=== PATIENT | male | born 1950 | race Caucasian/White ===

== ENCOUNTER 2017-08-08 10:34 | Emergency (ER) | payer MEDICARE ==
[~2017-08-08] VITALS: Ht 177.8 cm; Wt 107.0 kg
[~2017-08-08 10:34] MED LIST: AMOX500T2 PO; ASPI325T PO; LACTGRA PO; METO50TA PO; MINO50TA PO; MOBI7.5T PO; ROSU20 PO; SLO-500T2 PO; [UNRECOGNIZED DRUG - CODE] IM
[2017-08-08 10:35] VITALS: BP 135/79; PULSE 104; RESP 12; TEMP 98.4; O2SAT 98
[2017-08-08] MEDS ORDERED: MINO100 PO (11:10)
[2017-08-08] MEDS ORDERED: METO100T PO (11:10)
[2017-08-08] MEDS ORDERED: ATOR1TAB18 PO (11:10)
[2017-08-08] MEDS ORDERED: OMEP20CA2 PO (11:10)
[2017-08-08] MEDS ORDERED: HALO100I IM (11:10)
[2017-08-08] MEDS ORDERED: VITA100018 PO (11:10)
[2017-08-08] MEDS ORDERED: ASPI81CH CHEW (11:10)
[2017-08-08] MEDS ORDERED: NIAC500T67 PO (11:10)
[2017-08-08] MEDS ORDERED: CETI10CH CHEW (11:10)
[2017-08-08] MEDS ORDERED: PIPERACIL-TAZO 3.375 GM PREMIX 50 ML IV ONE (11:30)
[2017-08-08] MEDS ORDERED: VANCOMYCIN INJ 1,000 MG in SODIUM CHLOR 0.9% 250 ML INJ 250 ML IV ONE (11:30)
[2017-08-08] MEDS ORDERED: AMPICILLIN-SULBACTAM INJ 3 GM in SODIUM CHLORIDE 0.9% INJ 100 ML IV ONE (11:30)
[2017-08-08 11:35] LABS: AUTOMATED NEUTROPHIL # 8.8 TH/MM3 (1.8-7.7); BASOPHIL # 0.1 TH/MM3 (0-0.2); BASOPHIL % 0.6 % (0.0-2.0); EOSINOPHIL # 0.2 TH/MM3 (0-0.4); EOSINOPHIL % 1.3 % (0.0-4.0); HEMATOCRIT 44.9 % (39.0-51.0); HEMO FLAGS DIFF FINAL; LYMPH % 17.8 % (9.0-44.0); LYMPHOCYTE # 2.3 TH/MM3 (1.0-4.8); MEAN CELL VOLUME 87.7 FL (80.0-100.0); MEAN CORPUSCULAR HEMOGLOBIN 30.3 PG (27.0-34.0); MEAN CORPUSCULAR HGB CONC 34.6 % (32.0-36.0); MONO % 10.8 % (0.0-8.0); NEUT % 69.5 % (16.0-70.0); PLATELET COUNT 173 TH/MM3 (150-450); RED BLOOD COUNT 5.12 MIL/MM3 (4.50-5.90); WHITE BLOOD COUNT 12.7 TH/MM3 (4.0-11.0)
--- NOTE | 2017-08-08 11:52 | PD ---
HPI Chief Complaint: Skin Problem Time Seen by Provider: 11:11 Travel History International Travel<30 days: No Contact w/Intl Traveler<30days: No Traveled to known affect area: No History of Present Illness HPI 66-year-old male that presents to the ED for evaluation of rash to the face. Per patient his been ongoing for about 3 days. Per patient he has not seen his doctor. Per patient he follows with the [facility]. Per patient he had this about 3 years ago and was seen at this hospital and had to be admitted. Per patient at that time he "let it go to long" and had to be admitted for IV antibiotics. Per patient he is hoping to catch it early. The patient his been on the face is 6 out of 10. Patient denies anything that could've caused this. He denies any injuries. Denies any history of diabetes or immunosuppression. No surgeries to the face. No congestion. No fevers chills or sweats. Per patient pain is mostly around the cheeks and the bridge of the nose where he has most of the erythema and rash noted. Patient does have an allergy to sulfa. He denies having any other symptoms. No chest pain or shortness of breath. No abdominal pain. Urinary or bowel movement symptoms. PFSH Past Medical History Arthritis: Yes (LOWER LEGS) Anxiety: No Depression: No Heart Rhythm Problems: No Cardiovascular Problems: Yes High Cholesterol: Yes Chest Pain: No Congestive Heart Failure: No Endocrine: No GERD: Yes Genitourinary: Yes Immune Disorder: No Kidney Stones: No Musculoskeletal: Yes Neurologic: No Psychiatric: Yes Reproductive: No Respiratory: No Renal Failure: No Schizophrenia: Yes Thyroid Disease: No Triglycerides - High: Yes Tetanus Vaccination: Unknown Influenza Vaccination: Yes ?: Not Past Surgical History Abdominal Surgery: No Cardiac Surgery: Yes ([address] 8 YEARS AGO) Ear Surgery: No Endocrine Surgery: No Eye Surgery: No Genitourinary Surgery: No Gynecologic Surgery: No Oral Surgery: Yes (TONSILECTOMY WHEN WAS A KID) Thoracic Surgery: No Tonsillectomy: Yes Other Surgery: Yes (SKIN BIOPSY) Social History Alcohol Use: No Tobacco Use: No Substance Use: No Allergies-Medications (Allergen,Severity, Reaction): Coded Allergies: Sulfa (Sulfonamide Antibiotics) (Unverified Allergy, Unknown, 07/02/17) erythromycin base (Verified Allergy, Unknown, 08/08/17) Reported Meds & Prescriptions Reported Meds & Active Scripts Active Augmentin (Amoxicillin-Clavulanate) 875-125 Mg Tab 1 Tab PO BID Reported Omeprazole 20 Mg Cap 20 Mg PO DAILY PRN Niacin (Niacinamide) 500 Mg Tablet 2,000 Mg PO HS Minocycline (Minocycline HCl) 100 Mg Cap 100 Mg PO BID Metoprolol Tartrate 100 Mg Tab 50 Mg PO BID Haloperidol Decanoate Inj (Haloperidol Decanoate) 100 Mg/Ml Inj 100 Mg IM Q28D Vitamin D3 (Cholecalciferol) 1,000 Unit Tab 2,000 Units PO DAILY Cetirizine (Cetirizine HCl) 10 Mg Chew 10 Mg CHEW DAILY Atorvastatin (Atorvastatin Calcium) 80 Mg Tab 80 Mg PO HS Aspirin 81 Mg Chew 81 Mg CHEW DAILY Review of Systems Except as stated in HPI: all other systems reviewed are Neg Physical Exam Narrative GENERAL: SKIN: Warm and dry. Patient has an erythematous slightly blanchable rash on the mid face. Mainly around the forehead, bridge of the nose as well as the nose itself and the cheeks. Warm to the touch especially around the cheek area. Blanchable on the forehead only. No blanchable of the nose. Tender to touch. No obvious purulence or mass noted. Nostrils are patent bilaterally. No lymphadenopathy noted. HEAD: Atraumatic. Normocephalic. EYES: Pupils equal and round. No scleral icterus. No injection or drainage. ENT: No nasal bleeding or discharge. Mucous membranes pink and moist. Tongue is midline. No uvula deviation. NECK: Trachea midline. No JVD. CARDIOVASCULAR: Regular rate and rhythm. No murmurs, S3, S4. RESPIRATORY: No accessory muscle use. Clear to auscultation. Breath sounds equal bilaterally. GASTROINTESTINAL: Abdomen soft, non-tender, nondistended. Hepatic and splenic margins not palpable. MUSCULOSKELETAL: Extremities without clubbing, cyanosis, or edema. No obvious deformities. Full range of motion of the upper and lower extremities bilaterally. 2+ pulses bilaterally. NEUROLOGICAL: Awake and alert. No obvious cranial nerve deficits. Motor grossly within normal limits. Five out of 5 muscle strength in the arms and legs. Normal speech. PSYCHIATRIC: Appropriate mood and affect; insight and judgment normal. Data Data Last Documented VS Vital Signs Date Time Temp Pulse Resp B/P (MAP) Pulse Ox O2 Delivery O2 Flow Rate FiO2 08/08/17 12:48 81 08/08/17 11:00 18 08/08/17 10:35 98.4 98 Orders Orders Complete Blood Count With Diff (08/08/17 11:20) Basic Metabolic Panel (Bmp) (08/08/17 11:20) Urinalysis - C+S If Indicated (08/08/17 11:20) Piperacil-Tazo 3.375 Gm Premix (Zosyn 3. (08/08/17 11:30) Lactic Acid (08/08/17 11:26) Blood Culture (08/08/17 11:26) Ampicillin-Sulbactam Inj (Unasyn Inj) (08/08/17 11:30) Vancomycin Inj (Vancomycin Inj) (08/08/17 11:30) Labs Laboratory Tests Test 08/08/17 11:20 08/08/17 11:30 White Blood Count 12.7 TH/MM3 Red Blood Count 5.12 MIL/MM3 Hemoglobin 15.5 GM/DL Hematocrit 44.9 % Mean Corpuscular Volume 87.7 FL Mean Corpuscular Hemoglobin 30.3 PG Mean Corpuscular Hemoglobin Concent 34.6 % Red Cell Distribution Width 14.0 % Platelet Count 173 TH/MM3 Mean Platelet Volume 8.8 FL Neutrophils (%) (Auto) 69.5 % Lymphocytes (%) (Auto) 17.8 % Monocytes (%) (Auto) 10.8 % Eosinophils (%) (Auto) 1.3 % Basophils (%) (Auto) 0.6 % Neutrophils # (Auto) 8.8 TH/MM3 Lymphocytes # (Auto) 2.3 TH/MM3 Monocytes # (Auto) 1.4 TH/MM3 Eosinophils # (Auto) 0.2 TH/MM3 Basophils # (Auto) 0.1 TH/MM3 CBC Comment DIFF FINAL Differential Comment Urine Color GEN Urine Turbidity HAZY Urine pH 6.0 Urine Specific [place] 1.029 Urine Protein 30 mg/dL Urine Glucose (UA) NEG mg/dL Urine Ketones 10 mg/dL Urine Occult Blood SMALL Urine Nitrite NEG Urine Bilirubin NEG Urine Urobilinogen 4.0 MG/DL Urine Leukocyte Esterase NEG Urine RBC 2 /hpf Urine WBC 6 /hpf Urine Squamous Epithelial Cells 1 /hpf Urine Bacteria OCC /hpf Urine Hyaline Casts 3 /lpf Urine Mucus MOD /lpf Microscopic Urinalysis Comment CULT NOT INDICATED Blood Urea Nitrogen 15 MG/DL Creatinine 1.12 MG/DL Random Glucose 118 MG/DL Calcium Level 8.8 MG/DL Sodium Level 138 MEQ/L Potassium Level 3.7 MEQ/L Chloride Level 103 MEQ/L Carbon Dioxide Level 24.9 MEQ/L Anion Gap 10 MEQ/L Estimat Glomerular Filtration Rate 65 ML/MIN Lactic Acid Level 1.3 mmol/L MDM Medical Decision Making Medical Screen Exam Complete: Yes Emergency Medical Condition: Yes Medical Record Reviewed: Yes Interpretation(s) CBC Diagram 08/08/17 11:20 BMP Diagram 08/08/17 11:20 Calcium Level 8.8 UA shows bacteria, WBCs, blood, urobilinogen Differential Diagnosis Cellulitis versus facial cellulitis versus erysipelas versus rosacea Narrative Course 66-year-old male that presents to the ED for evaluation of facial rash. Patient was properly examined and was found to have signs and symptoms concerning for infection. My attending Dr. Brock and evaluated the patient with me and agrees with plan. Labs were ordered. Patient was given IV Vanco as well as Unasyn which was given to him in the past with good results. Labs showed slightly elevated WBC, possible UTI. This was discussed with my attending who agrees with discharge plan. He will be started on augmentin which is antibiotic given to him last time which helped clear his infection. Patient understands reasons to come back. Follow up with PCP recommended as early as saturday. See ED if worsening symptoms. Diagnosis Primary Impression: Cellulitis diffuse, face Additional Impression: UTI (urinary tract infection) Qualified Codes: N30.01 - Acute cystitis with hematuria Patient Instructions: General Instructions Additional Instructions: Take medication as prescribed. Follow-up with PCP. See ED worsening symptoms. Motrin or tylenol for pain. Recheck in 48 hours if worsening or not improving at all. If not follow up with PCP. Med/Other Pt SpecificInfo: Prescription(s) given Scripts Amoxicillin-Clavulanate (Augmentin) 875-125 Mg Tab 1 TAB PO BID for Infection, #10 TAB 0 Refills Prov: Ruth Brock MD 08/08/17 Disposition: 01 DISCHARGE HOME Condition: Stable Leonardo Storm Aug 08, 2017 11:52
[2017-08-08 11:59] LABS: BACTERIA, URINE OCC /hpf; BLOOD, URINE SMALL (NEG); COMMENT (UR) CULT NOT INDICATED; CULTURE IF INDICATED CULT NOT INDICATED; GLUCOSE,URINE NEG (NEG); HYALINE CAST, URINE 3 /lpf (RARE); KETONE, URINE 10 mg/dL (NEG); MUCUS URINE MOD /lpf (OCC); NITRITE,URINE NEG (NEG); SQUAMOUS EPITHELIAL CELL URINE 1 /hpf (0-5)
[2017-08-08 12:08] LABS: BICARBONATE 24.9 MEQ/L (21.0-32.0); POTASSIUM 3.7 MEQ/L (3.5-5.1); URINE COLOR AMBER (YELLW/STRAW)
[2017-08-08 12:48] VITALS: PULSE 81
[2017-08-08] MEDS ORDERED: AUGM875T3 PO (12:49)
== END 2017-08-08 14:06 | disposition home or self-care (01) ==
LOC: NEPE 10:34
DX: L03.211 Cellulitis of face (principal); N30.01 Acute cystitis with hematuria; E78.00 Pure hypercholesterolemia, unspecified; K21.9 Gastro-esophageal reflux disease without esophagitis
CPT/HCPCS: 80048; 81001; 83605; 85025; 87040; 96365; 96367; 99284; J0295; J3370; J7050

== ENCOUNTER 2017-11-26 08:30 | Observation (INO) | payer MEDICARE ==
[~2017-11-26] VITALS: Ht 177.8 cm; Wt 104.5 kg
[~2017-11-26 08:30] MED LIST changes: -AMOX500T2 PO; +ASPI-516 CHEW; -ASPI325T PO; +ATOR80TA45 PO; +AUGM875T3 PO; +CETI10CH CHEW; +HALO100I IM; -LACTGRA PO; +METO100T PO; -METO50TA PO; +MINO100 PO; -MINO50TA PO; -MOBI7.5T PO; +NIAC500T67 PO; +OMEP20CA2 PO; -ROSU20 PO; -SLO-500T2 PO; +VITA100018 PO; -[UNRECOGNIZED DRUG - CODE] IM
[2017-11-26 08:31] VITALS: BP 139/69; PULSE 95; RESP 14; TEMP 98.1; O2SAT 97
[2017-11-26] MEDS ORDERED: VANCOMYCIN INJ 1,000 MG in SODIUM CHLOR 0.9% 250 ML INJ 250 ML IV STA (09:15)
[2017-11-26] MEDS ORDERED: PIPERACIL-TAZO 4.5 GM PREMIX 100 ML IV STA (09:15)
[2017-11-26 09:38] LABS: AUTOMATED NEUTROPHIL # 6.1 TH/MM3 (1.8-7.7); BASOPHIL # 0.1 TH/MM3 (0-0.2); EOSINOPHIL # 0.5 TH/MM3 (0-0.4); EOSINOPHIL % 5.2 % (0.0-4.0); HEMATOCRIT 42.3 % (39.0-51.0); HEMOGLOBIN 14.8 GM/DL (13.0-17.0); LYMPH % 22.2 % (9.0-44.0); LYMPHOCYTE # 2.1 TH/MM3 (1.0-4.8); MEAN CELL VOLUME 88.8 FL (80.0-100.0); MEAN CORPUSCULAR HEMOGLOBIN 31.1 PG (27.0-34.0); MEAN PLATELET VOLUME 8.6 FL (7.0-11.0); MONO % 8.1 % (0.0-8.0); MONOCYTE # 0.8 TH/MM3 (0-0.9); NEUT % 63.5 % (16.0-70.0); PLATELET COUNT 203 TH/MM3 (150-450); RED BLOOD COUNT 4.76 MIL/MM3 (4.50-5.90); RED CELL DISTRIBUTION WIDTH 13.2 % (11.6-17.2); WHITE BLOOD COUNT 9.6 TH/MM3 (4.0-11.0)
[2017-11-26 09:51] LABS: ALBUMIN 3.2 GM/DL (3.4-5.0); AST (GOT) 22 U/L (15-37); BLOOD UREA NITROGEN 8 MG/DL (7-18); CALCIUM 8.5 MG/DL (8.5-10.1); CHLORIDE 104 MEQ/L (98-107); CREATININE 0.92 MG/DL (0.60-1.30); GLOMERULAR FILTRATION RATE 82 ML/MIN (>89); GLUCOSE,RANDOM 115 MG/DL (74-106); INTERNATIONAL NORMALIZED RATIO 1.1 RATIO; MAGNESIUM 1.8 MG/DL (1.5-2.5); PROTHROMBIN TIME - PATIENT 10.9 SEC (9.8-11.6); SODIUM (NA) 139 MEQ/L (136-145)
[2017-11-26 09:56] LABS: ALKALINE PHOSPHATASE 117 U/L (45-117); ALT (GPT) 26 U/L (12-78); TOTAL BILIRUBIN ADULT 0.9 MG/DL (0.2-1.0)
--- NOTE | 2017-11-26 10:02 | PD ---
HPI Chief Complaint: Edema Time Seen by Provider: 09:15 Travel History International Travel<30 days: No Contact w/Intl Traveler<30days: No Traveled to known affect area: No History of Present Illness HPI 67-year-old male presents with redness and swelling to his face over the past couple of days. He states he went to the [place] doctor yesterday and they looked in his ears and thought his ear might be infected but he states they did not start him on any antibiotics. He states he had a little bit of a fever he thinks yesterday but denies any since then. He states when he had this before he had a stay in the hospital for IV antibiotics. He denies any other concurrent complaints at this time. Quality is red. Location is face. Severity is progressive per patient. He denies any exposure to any new products. PFSH Past Medical History Arthritis: Yes (LOWER LEGS) Anxiety: No Depression: No Heart Rhythm Problems: No Cardiovascular Problems: Yes High Cholesterol: Yes Chest Pain: No Congestive Heart Failure: No Diminished Hearing: No Endocrine: No Gastrointestinal Disorders: No GERD: Yes Genitourinary: Yes Immune Disorder: No Kidney Stones: No Musculoskeletal: Yes Neurologic: No Psychiatric: Yes Reproductive: No Respiratory: No Renal Failure: No Schizophrenia: Yes Thyroid Disease: No Triglycerides - High: Yes Influenza Vaccination: No Past Surgical History Abdominal Surgery: No Cardiac Surgery: Yes ([address] 8 YEARS AGO) Ear Surgery: No Endocrine Surgery: No Eye Surgery: No Genitourinary Surgery: Yes (KIDNEY STENT ) Gynecologic Surgery: No Oral Surgery: Yes (TONSILECTOMY WHEN WAS A KID) Thoracic Surgery: No Tonsillectomy: Yes Other Surgery: Yes (SKIN BIOPSY) Social History Alcohol Use: No Tobacco Use: No Substance Use: No Allergies-Medications (Allergen,Severity, Reaction): Coded Allergies: Sulfa (Sulfonamide Antibiotics) (Unverified Allergy, Unknown, 07/02/17) erythromycin base (Verified Allergy, Unknown, 08/08/17) Reported Meds & Prescriptions Reported Meds & Active Scripts Active Augmentin (Amoxicillin-Clavulanate) 875-125 Mg Tab 1 Tab PO BID Reported Omeprazole 20 Mg Cap 20 Mg PO DAILY PRN Niacin (Niacinamide) 500 Mg Tablet 2,000 Mg PO HS Minocycline (Minocycline HCl) 100 Mg Cap 100 Mg PO BID Metoprolol Tartrate 100 Mg Tab 50 Mg PO BID Haloperidol Decanoate Inj (Haloperidol Decanoate) 100 Mg/Ml Inj 100 Mg IM Q28D Vitamin D3 (Cholecalciferol) 1,000 Unit Tab 2,000 Units PO DAILY Cetirizine (Cetirizine HCl) 10 Mg Chew 10 Mg CHEW DAILY Atorvastatin (Atorvastatin Calcium) 80 Mg Tab 80 Mg PO HS Aspirin 81 Mg Chew 81 Mg CHEW DAILY Review of Systems Except as stated in HPI: all other systems reviewed are Neg Physical Exam Narrative GENERAL: Well-nourished, well-developed patient. SKIN: Warm and dry. Erythema and warmth noted to area above nose that extends up into forehead and bilateral supraorbital areas without underlying crepitus or induration, warm to touch HEAD: Normocephalic and atraumatic. EYES: No injection or drainage. Extraocular movement intact ENT: No nasal drainage noted. NECK: Supple, trachea midline. CARDIOVASCULAR: Regular rate and rhythm RESPIRATORY: Breath sounds equal bilaterally. No accessory muscle use. GASTROINTESTINAL: Abdomen soft, nondistended. EXTREMITIES: No edema. NEUROLOGICAL: Awake and alert. Motor and sensory grossly within normal limits. Normal speech. Data Data Last Documented VS Vital Signs Date Time Temp Pulse Resp B/P (MAP) Pulse Ox O2 Delivery O2 Flow Rate FiO2 11/26/17 10:05 12 100 Room Air 11/26/17 10:05 67 11/26/17 08:31 98.1 Orders Orders Sepsis Workup Initiated (11/26/17 ) Complete Blood Count With Diff (11/26/17 09:15) Comprehensive Metabolic Panel (11/26/17 09:15) Prothrombin Time / Inr (Pt) (11/26/17 09:15) Act Partial Throm Time (Ptt) (11/26/17 09:15) Lactic Acid Sepsis Protocol (11/26/17 09:15) Magnesium (Mg) (11/26/17 09:15) Urinalysis - C+S If Indicated (11/26/17 09:15) Blood Culture (11/26/17 09:15) Ecg Monitoring (11/26/17 09:15) Iv Access Insert/Monitor (11/26/17 09:15) Oximetry (11/26/17 09:15) Ct Facial Bones W Iv Contrast (11/26/17 ) Piperacil-Tazo 4.5 Gm Premix (Zosyn 4.5 (11/26/17 09:15) Vancomycin Inj (Vancomycin Inj) (11/26/17 09:15) Iohexol 350 Inj (Omnipaque 350 Inj) (11/26/17 10:57) Admit Order (Ed Use Only) (11/26/17 11:27) Labs Laboratory Tests Test 11/26/17 09:25 11/26/17 10:02 White Blood Count 9.6 TH/MM3 Red Blood Count 4.76 MIL/MM3 Hemoglobin 14.8 GM/DL Hematocrit 42.3 % Mean Corpuscular Volume 88.8 FL Mean Corpuscular Hemoglobin 31.1 PG Mean Corpuscular Hemoglobin Concent 35.0 % Red Cell Distribution Width 13.2 % Platelet Count 203 TH/MM3 Mean Platelet Volume 8.6 FL Neutrophils (%) (Auto) 63.5 % Lymphocytes (%) (Auto) 22.2 % Monocytes (%) (Auto) 8.1 % Eosinophils (%) (Auto) 5.2 % Basophils (%) (Auto) 1.0 % Neutrophils # (Auto) 6.1 TH/MM3 Lymphocytes # (Auto) 2.1 TH/MM3 Monocytes # (Auto) 0.8 TH/MM3 Eosinophils # (Auto) 0.5 TH/MM3 Basophils # (Auto) 0.1 TH/MM3 CBC Comment DIFF FINAL Differential Comment Prothrombin Time 10.9 SEC Prothromb Time International Ratio 1.1 RATIO Activated Partial Thromboplast Time 28.2 SEC Blood Urea Nitrogen 8 MG/DL Creatinine 0.92 MG/DL Random Glucose 115 MG/DL Total Protein 7.0 GM/DL Albumin 3.2 GM/DL Calcium Level 8.5 MG/DL Magnesium Level 1.8 MG/DL Alkaline Phosphatase 117 U/L Aspartate Amino Transf (AST/SGOT) 22 U/L Alanine Aminotransferase (ALT/SGPT) 26 U/L Total Bilirubin 0.9 MG/DL Sodium Level 139 MEQ/L Potassium Level 3.5 MEQ/L Chloride Level 104 MEQ/L Carbon Dioxide Level 30.0 MEQ/L Anion Gap 5 MEQ/L Estimat Glomerular Filtration Rate 82 ML/MIN Lactic Acid Level 1.1 mmol/L Urine Color YELLOW Urine Turbidity CLEAR Urine pH 6.0 Urine Specific [place] 1.024 Urine Protein TRACE mg/dL Urine Glucose (UA) NEG mg/dL Urine Ketones NEG mg/dL Urine Occult Blood NEG Urine Nitrite NEG Urine Bilirubin NEG Urine Urobilinogen 2.0 MG/DL Urine Leukocyte Esterase NEG Urine RBC 1 /hpf Urine WBC 1 /hpf Urine Squamous Epithelial Cells <1 /hpf Urine Mucus FEW /lpf Microscopic Urinalysis Comment CATH-CULT NOT IND MDM Medical Decision Making Medical Screen Exam Complete: Yes Emergency Medical Condition: Yes Medical Record Reviewed: Yes Interpretation(s) CBC & BMP Diagram 11/26/17 09:25 Total Protein 7.0, Albumin 3.2 L, Calcium Level 8.5, Magnesium Level 1.8, Alkaline Phosphatase 117, Aspartate Amino Transf (AST/SGOT) 22, Alanine Aminotransferase (ALT/SGPT) 26, Total Bilirubin 0.9 Last [address] 11/26/17 0000 Signed Impressions: Service Date/Time: Sunday, November 26, 2017 10:40 - CONCLUSION: 1. Mild soft tissue swelling over the left lateral facial bones and orbit with no evidence of abscess. 2. No underlying bony abnormality. Federico Zuniga MD Differential Diagnosis Preseptal cellulitis, post septal cellulitis, allergic Narrative Course On exam patient appears to have facial cellulitis. Will check blood work, CT scan and started on Zosyn and vancomycin and monitor Physician Communication Physician Communication dr grant agrees to admit Diagnosis Primary Impression: Facial cellulitis Admitting Information Admitting Physician Requests: Susan Ruth MD Nov 26, 2017 10:02
[2017-11-26 10:05] VITALS: BP 124/71; PULSE 67; RESP 12; RESP 15; O2SAT 100
[2017-11-26 10:25] LABS: BILIRUBIN, URINE NEG (NEG); BLOOD, URINE NEG (NEG); GLUCOSE,URINE NEG (NEG); KETONE, URINE NEG (NEG); MUCUS URINE FEW /lpf (OCC); NITRITE,URINE NEG (NEG); SQUAMOUS EPITHELIAL CELL URINE <1 /hpf (0-5); URINE COLOR YELLOW (YELLW/STRAW); URINE LEUKOCYTE ESTERASE NEG (NEG)
[2017-11-26] MEDS ORDERED: IOHEXOL 350 MG/ML 10 ML VIAL (for RAD DIAG) IVCONTRAST ONE (10:57)
--- NOTE | 2017-11-26 11:08 | RADRPT ---
EXAM DATE/TIME: 11/26/2017 10:40 [facility] COMPARISON: No previous studies available for comparison. INDICATIONS : Facial redness and swelling since Saturday. IV CONTRAST: 50 cc Omnipaque 350 (iohexol) IV RADIATION DOSE: 56.76 CTDIvol (mGy) MEDICAL HISTORY : Cardiovascular disease. SURGICAL HISTORY : None. ENCOUNTER: Initial ACUITY: 1 day PAIN SCALE: 0/10 LOCATION: facial TECHNIQUE: Volumetric scanning of the facial bones was performed. Using automated exposure control and adjustme nt of the mA and/or kV according to patient size, radiation dose was kept as low as reasonably achiev able to obtain optimal diagnostic quality images. DICOM format image data is available [email or web address] y for review and comparison. FINDINGS: ORBITS: The orbital and infraorbital osseous structures are intact. The retroconal structures have a normal configuration. No radiopaque foreign bodies are seen. NASAL BONE: The nasal bone and maxillary spine are intact ZYGOMATIC ARCHES: Symmetric without evidence of fracture. SINUSES: The maxillary, ethmoid and frontal sinuses are intact. No air-fluid levels seen. NASAL CAVITY: The nasal septum is intact and midline. The lacrimal ducts are intact. SOFT TISSUES: No radiopaque foreign bodies seen. There is mild soft tissue swelling over the knee left lateral orbi t and facial bones. INTRACRANIAL: No intracranial air seen. CRIBIFORM PLATE: Grossly intact. CONCLUSION: 1. Mild soft tissue swelling over the left lateral facial bones and orbit with no evidence of abscess . 2. No underlying bony abnormality. Federico Zuniga MD on November 26, 2017 at 11:00 Board Certified Radiologist. This report was verified electronically.
[2017-11-26] MEDS ORDERED: ONDANSETRON HCL 4 MG/2 ML VIAL IVP PRN (12:00)
[2017-11-26] MEDS ORDERED: MAGNESIUM HYDROXIDE SUSP 30 ML CUP PO PRN (12:00)
[2017-11-26] MEDS ORDERED: BISACODYL 10 MG SUPP RECTAL PRN (12:00)
[2017-11-26] MEDS ORDERED: LACTULOSE SYRUP 20 GM/30 ML CUP PO PRN (12:00)
[2017-11-26] MEDS ORDERED: SODIUM CHLORIDE 0.9% FLUSH 10 ML FLUSH IV FLUSH PRN (12:00)
[2017-11-26] MEDS ORDERED: SENNOSIDES 8.6 MG TAB PO PRN (12:00)
[2017-11-26] MEDS ORDERED: Vancomycin Consult Pharmacy 1 EA OTHER SCH (12:00)
[2017-11-26] MEDS ORDERED: NALOXONE HCL 0.4 MG/ML AMP IV PUSH PRN (12:00)
--- NOTE | 2017-11-26 14:39 | HHI.HP ---
[facility] Service [facility] Primary Care Physician No Primary Care Physician Admission Diagnosis facial celluliltis Diagnoses: Chief Complaint: Facial cellulitis Travel History International Travel<30 Days: No Contact w/Intl Traveler <30 Da: No Traveled to Known Affected Are: No History of Present Illness This is a 67-year-old male past medical history coronary artery disease status post stent placement 10 years ago, hyperlipidemia, GERD, history of schizophrenia, and recurrent facial cellulitis who presented with recurrent facial cellulitis. Patient was seen in the ED on July 2017 with facial cellulitis and was sent home with Augmentin with resolution of his cellulitis. He stated Saturday night facial cellulitis returned and worsened. He went to the [facility] yesterday and they told him to go to the emergency department. Patient does admit having allergies and runny nose. He stated that he uses a nasal spray but was not able to tell me what kind and it is not listed in his medication list. He denied any postnasal dripping, earache, pain or sore throat. Denies any fevers or chills. He stated that he's been treated 3-4 times in his lifetime for this issue. Patient denied any eye pain or visual changes. He was not treated on any oral medication for this episode. All other review of system reviewed and negative Past Family Social History Past Medical History Coronary artery disease Hyperlipidemia History of histoplasmosis Schizophrenia GERD Past Surgical History Status post stent placement 2 about 10 years ago Lymph node biopsy Reported Medications Reported Meds & Active Scripts Active Reported Omeprazole 20 Mg Cap 20 Mg PO DAILY PRN Niacin (Niacinamide) 500 Mg Tablet 2,000 Mg PO HS Minocycline (Minocycline HCl) 100 Mg Cap 100 Mg PO BID Metoprolol Tartrate 100 Mg Tab 50 Mg PO BID Haloperidol Decanoate Inj (Haloperidol Decanoate) 100 Mg/Ml Inj 100 Mg IM Q28D Vitamin D3 (Cholecalciferol) 1,000 Unit Tab 2,000 Units PO DAILY Cetirizine (Cetirizine HCl) 10 Mg Chew 10 Mg CHEW DAILY Atorvastatin (Atorvastatin Calcium) 80 Mg Tab 80 Mg PO HS Aspirin 81 Mg Chew 81 Mg CHEW DAILY Allergies: Coded Allergies: Sulfa (Sulfonamide Antibiotics) (Unverified Allergy, Unknown, 07/02/17) erythromycin base (Verified Allergy, Unknown, 08/08/17) Active Ordered Medications Current Medications Piperacillin Sod/ Tazobactam Sod 100 ml @ 200 mls/hr ONCE STAT IV Last administered on 11/26/17at 10:04; Start 11/26/17 at 09:15; Stop 11/26/17 at 09:44; Status DC Vancomycin HCl 1000 mg/Sodium Chloride 250 ml @ 250 mls/hr ONCE STAT IV Last administered on 11/26/17at 10:04; Start 11/26/17 at 09:15; Stop 11/26/17 at 10:14; Status DC Iohexol (Omnipaque 350 Inj) 50 ml STK-MED ONCE IVCONTRAST Last administered on 11/26/17at 10:57; Start 11/26/17 at 10:57; Stop 11/26/17 at 10:58; Status DC Sodium Chloride (NS Flush) 2 ml UNSCH PRN IV FLUSH FLUSH AFTER USING IV ACCESS ; Start 11/26/17 at 12:00 Sodium Chloride (NS Flush) 2 ml BID IV FLUSH ; Start 11/26/17 at 21:00 Ondansetron HCl (Zofran Inj) 4 mg Q6H PRN IVP NAUSEA OR VOMITING; Start at 12:00 Naloxone HCl (Narcan Inj) 0.4 mg UNSCH PRN IV PUSH SEE LABEL COMMENTS; Start at 12:00 Senna/Docusate Sodium (Suellen-Colace) 1 tab BID PO ; Start 11/26/17 at 21:00 Magnesium Hydroxide (Milk Of Magnesia Liq) 30 ml Q12H PRN PO Mild constipation ; Start 11/26/17 at 12:00 Sennosides (Senokot) 17.2 mg Q12H PRN PO Moderate constipation; Start 11/26/17 at 12:00 Bisacodyl (Dulcolax Supp) 10 mg DAILY PRN RECTAL SEVERE CONSITIPATION; Start at 12:00 Lactulose (Lactulose Liq) 30 ml DAILY PRN PO SEVERE CONSITIPATION; Start at 12:00 Vancomycin/Sodium Chloride 200 ml @ 200 mls/hr Q12H IV ; Start 11/26/17 at 22:00 ; Stop 11/26/17 at 22:00; Status DC Pharmacy Profile Note 0 ml @ 0 mls/hr UNSCH OTHER ; Start 11/26/17 at 12:00 Ampicillin Sodium/ Sulbactam Sodium 3 gm/Sodium Chloride 100 ml @ 200 mls/hr Q6H IV ; Start 11/26/17 at 17:00 Vancomycin HCl 1500 mg/Sodium Chloride 515 ml @ 250 mls/hr Q12H IV ; Start 11/26 at 18:00 Miscellaneous Information SPECIFIC LAB TO BE DRAWN:VANCOMYCIN TROUGH DATE TO... ONCE ONCE .XX ; Start 11/28/17 at 05:45; Stop 11/28/17 at 05:46 Aspirin (Aspirin Chew) 81 mg DAILY CHEW ; Start 11/27/17 at 09:00; Status UNV Atorvastatin Calcium (Lipitor) 80 mg HS PO ; Start 11/26/17 at 21:00; Status UNV Cetirizine HCl (ZyrTEC) 10 mg DAILY PO ; Start 11/27/17 at 09:00; Status UNV Cholecalciferol (Vitamin D3) 2,000 units DAILY PO ; Start 11/27/17 at 09:00; Status UNV Haloperidol Decanoate (Haldol Decanoate Inj) 100 mg Q28D IM ; Start 11/26/17 at 15:15; Status UNV Metoprolol Tartrate (Lopressor) 50 mg BID PO ; Start 11/26/17 at 21:00; Status UNV Non-Formulary Medication 20 mg DAILY PRN PO REFLUX; Start 11/26/17 at 15:15; Status UNV Family History Father from CVA. Mother history of lupus and colon cancer. Social History Deny any tobacco, alcohol, and illicit drug use. Physical Exam Vital Signs Vital Signs Date Time Temp Pulse Resp B/P (MAP) Pulse Ox O2 Delivery O2 Flow Rate FiO2 11/26/17 10:05 12 100 Room Air 11/26/17 10:05 67 15 124/71 (88) 100 Room Air 11/26/17 08:48 Room Air 11/26/17 08:31 98.1 95 14 139/69 (92) 97 Physical Exam GENERAL: This is a well-nourished, well-developed patient, in no apparent distress. SKIN: Facial cellulitis with erythema around his nasal bridge and forehead. Positive tenderness to palpation on the maxillary and frontal sinuses. HEAD: Atraumatic. Normocephalic. No temporal or scalp tenderness. EYES: Pupils equal round and reactive. Extraocular motions intact. No scleral icterus. No injection or drainage. ENT: Nose without bleeding, purulent drainage or septal hematoma. Throat without erythema, tonsillar hypertrophy or exudate. Uvula midline. Airway patent. NECK: Trachea midline. No JVD or lymphadenopathy. Supple, nontender, no meningeal signs. CARDIOVASCULAR: Regular rate and rhythm without murmurs, gallops, or rubs. RESPIRATORY: Clear to auscultation. Breath sounds equal bilaterally. No wheezes , rales, or rhonchi. GASTROINTESTINAL: Abdomen soft, non-tender, nondistended. No hepato-splenomegaly , or palpable masses. No guarding. MUSCULOSKELETAL: Extremities without clubbing, cyanosis, or edema. No joint tenderness, effusion, or edema noted. No calf tenderness. Negative Homans sign bilaterally. NEUROLOGICAL: Awake and alert. Cranial nerves II through XII intact. Motor and sensory grossly within normal limits. Five out of 5 muscle strength in all muscle groups. Normal speech. Laboratory Laboratory Tests Test 11/26/17 09:25 11/26/17 10:02 White Blood Count 9.6 Red Blood Count 4.76 Hemoglobin 14.8 Hematocrit 42.3 Mean Corpuscular Volume 88.8 Mean Corpuscular Hemoglobin 31.1 Mean Corpuscular Hemoglobin Concent 35.0 Red Cell Distribution Width 13.2 Platelet Count 203 Mean Platelet Volume 8.6 Neutrophils (%) (Auto) 63.5 Lymphocytes (%) (Auto) 22.2 Monocytes (%) (Auto) 8.1 Eosinophils (%) (Auto) 5.2 Basophils (%) (Auto) 1.0 Neutrophils # (Auto) 6.1 Lymphocytes # (Auto) 2.1 Monocytes # (Auto) 0.8 Eosinophils # (Auto) 0.5 Basophils # (Auto) 0.1 CBC Comment DIFF FINAL Differential Comment Prothrombin Time 10.9 Prothromb Time International Ratio 1.1 Activated Partial Thromboplast Time 28.2 Blood Urea Nitrogen 8 Creatinine 0.92 Random Glucose 115 Total Protein 7.0 Albumin 3.2 Calcium Level 8.5 Magnesium Level 1.8 Alkaline Phosphatase 117 Aspartate Amino Transf (AST/SGOT) 22 Alanine Aminotransferase (ALT/SGPT) 26 Total Bilirubin 0.9 Sodium Level 139 Potassium Level 3.5 Chloride Level 104 Carbon Dioxide Level 30.0 Anion Gap 5 Estimat Glomerular Filtration Rate 82 Lactic Acid Level 1.1 Urine Color YELLOW Urine Turbidity CLEAR Urine pH 6.0 Urine Specific Price 1.024 Urine Protein TRACE Urine Glucose (UA) NEG Urine Ketones NEG Urine Occult Blood NEG Urine Nitrite NEG Urine Bilirubin NEG Urine Urobilinogen 2.0 Urine Leukocyte Esterase NEG Urine RBC 1 Urine WBC 1 Urine Squamous Epithelial Cells <1 Urine Mucus FEW Microscopic Urinalysis Comment CATH-CULT NOT IND Date/Time Source Procedure Growth Status 11/26/17 09:25 Blood Peripheral Aerobic Blood Culture Pending Received 11/26/17 09:25 Blood Peripheral Anaerobic Blood Culture Pending Received Result Diagram: 11/26/1792411/26/17924 Imaging Last Impressions Maxillofacial CT 11/26/17 0000 Signed Impressions: Service Date/Time: Sunday, November 26, 2017 10:40 - CONCLUSION: 1. Mild soft tissue swelling over the left lateral facial bones and orbit with no evidence of abscess. 2. No underlying bony abnormality. Federico Zuniga MD [place] VTE Risk Assessment Caprini VTE Risk Assessment: Mod/High Risk (score >= 2) Caprini Risk Assessment Model Point Value = 1 Point Value = 2 Point Value = 3 Point Value = 5 Age 41-60 Minor surgery BMI > 25 kg/m2 Swollen legs Varicose veins or History of unexplained or recurrent spontaneous Oral contraceptives or hormone replacement Sepsis (< 1 month) Serious lung disease, including pneumonia (< 1 month) Abnormal pulmonary function Acute myocardial infarction Congestive heart failure (< 1 month) History of inflammatory bowel disease Medical patient at bed rest Age 61-74 Arthroscopic surgery Major open surgery (> 45 min) Laparoscopic surgery (> 45 min) Malignancy Confined to bed (> 72 hours) Immobilizing plaster cast Central venous access Age >= 75 History of VTE Family history of VTE Factor V Leiden Prothrombin [id number] Lupus anticoagulant Anticardiolipin antibodies Elevated serum homocysteine Heparin-induced thrombocytopenia Other congenital or acquired thrombophilia Stroke (< 1 month) Elective arthroplasty Hip, pelvis, or leg fracture Acute spinal cord injury (< 1 month) Prophylaxis Regimen Total Risk Factor Score Risk Level Prophylaxis Regimen 0-1 Low Early ambulation 2 Moderate Order ONE of the following: *Sequential Compression Device (SCD) *Heparin 5000 units SQ BID 3-4 Higher Order ONE of the following medications: *Heparin 5000 units SQ TID *Enoxaparin/Lovenox 40 mg SQ daily (WT < 150 kg, CrCl > 30 mL/min) *Enoxaparin/Lovenox 30 mg SQ daily (WT < 150 kg, CrCl > 10-29 mL/min) *Enoxaparin/Lovenox 30 mg SQ BID (WT < 150 kg, CrCl > 30 mL/min) AND/OR *Sequential Compression Device (SCD) 5 or more Highest Order ONE of the following medications: *Heparin 5000 units SQ TID (Preferred with Epidurals) *Enoxaparin/Lovenox 40 mg SQ daily (WT < 150 kg, CrCl > 30 mL/min) *Enoxaparin/Lovenox 30 mg SQ daily (WT < 150 kg, CrCl > 10-29 mL/min) *Enoxaparin/Lovenox 30 mg SQ BID (WT < 150 kg, CrCl > 30 mL/min) AND *Sequential Compression Device (SCD) Assessment and Plan Assessment and Plan 67-year-old female with a history of recurrent facial cellulitis throughout his lifetime who presented with facial cellulitis Facial cellulitis -Patient does not have leukocytosis or a fever. Cellulitis is extensive. We' ll need to treat with IV antibiotics. -Maxillofacial CT scan showed mild edema in the left lateral facial bone and orbital without abscess. -Patient was given Zosyn and vancomycin in the ED. Will start Unasyn and continue vancomycin. Will have pharmacy dose vancomycin. -Continue to monitor clinically. Sinusitis -See treatment as above. Will add a nasal saline spray and Flonase. Coronary artery disease status post stent placement/hyperlipidemia/GERD/ schizophrenia -Resume home medication. DVT prophylaxis -Encourage ambulation/SCDs Discussed Condition With patient Elma Crane MD Nov 26, 2017 14:39
[2017-11-26] MEDS ORDERED: SODIUM CHLORIDE 0.65% NASAL SPRAY 45 ML BTL EACH NARE PRN (15:30)
[2017-11-26] MEDS ORDERED: HALOPERIDOL DECANOATE 50 MG/ML VIAL IM SCH (16:00)
[2017-11-26] MEDS ORDERED: ACETAMINOPHEN 500 MG CPLT PO PRN (16:00)
[2017-11-26] MEDS ORDERED: PANTOPRAZOLE SOD 20 MG DELAYED RELEASE TAB PO PRN (16:00)
[2017-11-26] MEDS: AMPICILLIN-SULBACTAM INJ 3 GM in SODIUM CHLORIDE 0.9% INJ 100 ML IV SCH ×2 (16:38→23:02)
[2017-11-26] MEDS: ACETAMINOPHEN/HYDROcodone 325 MG/5 MG TAB PO PRN (16:48)
[2017-11-26 18:19] VITALS: BP 116/59; PULSE 69; RESP 18; TEMP 98; O2SAT 97
[2017-11-26] MEDS: VANCOMYCIN INJ 1,500 MG in SODIUM CHLORID 0.9% 500 ML INJ 500 ML IV SCH (18:29)
[2017-11-26 20:00] VITALS: BP 99/51; PULSE 73; RESP 16; TEMP 98; O2SAT 97
[2017-11-26] MEDS: SODIUM CHLORIDE 0.9% FLUSH 10 ML FLUSH IV FLUSH SCH (21:18)
[2017-11-26] MEDS: FLUTICASONE PROPIONATE 50 MCG/ACT 16 GM NASAL SPRAY NASAL SCH (21:18)
[2017-11-26] MEDS: METOPROLOL TARTRATE 50 MG TAB PO SCH (21:19)
[2017-11-26] MEDS: ATORVASTATIN 80 MG TAB PO SCH (21:19)
[2017-11-26] MEDS: DOCUSATE SODIUM 50 MG/SENNA 8.6 MG TAB PO SCH (21:19)
[2017-11-26] MEDS ORDERED: VANCOMYCIN INJ 200 ML IV SCH (22:00)
[2017-11-27 00:08] VITALS: BP 102/56; PULSE 64; RESP 18; TEMP 97.8; O2SAT 98
[2017-11-27 03:19] VITALS: BP 108/57; PULSE 62; RESP 16; TEMP 97.9; O2SAT 98
[2017-11-27] MEDS: AMPICILLIN-SULBACTAM INJ 3 GM in SODIUM CHLORIDE 0.9% INJ 100 ML IV SCH ×4 (04:14→22:36)
[2017-11-27] MEDS: VANCOMYCIN INJ 1,500 MG in SODIUM CHLORID 0.9% 500 ML INJ 500 ML IV SCH ×2 (05:03→20:19)
[2017-11-27 07:07] LABS: HEMATOCRIT 37.1 % (39.0-51.0); HEMOGLOBIN 13.1 GM/DL (13.0-17.0); MEAN CELL VOLUME 87.5 FL (80.0-100.0); MEAN CORPUSCULAR HGB CONC 35.4 % (32.0-36.0); MEAN PLATELET VOLUME 8.4 FL (7.0-11.0); PLATELET COUNT 165 TH/MM3 (150-450); RED BLOOD COUNT 4.23 MIL/MM3 (4.50-5.90); WHITE BLOOD COUNT 7.9 TH/MM3 (4.0-11.0)
[2017-11-27 07:23] VITALS: BP 107/58; PULSE 60; RESP 18; TEMP 98.2; O2SAT 98
[2017-11-27 07:29] LABS: BICARBONATE 28.4 MEQ/L (21.0-32.0); CALCIUM 8.1 MG/DL (8.5-10.1); CREATININE 0.89 MG/DL (0.60-1.30)
[2017-11-27] MEDS: CETIRIZINE HCL 10 MG TAB PO SCH (08:44)
[2017-11-27] MEDS: ASPIRIN 81 MG CHEW TAB CHEW SCH (08:44)
[2017-11-27] MEDS: CHOLECALCIFEROL (VIT D3) 1000 UNIT TAB PO SCH (08:44)
[2017-11-27] MEDS: FLUTICASONE PROPIONATE 50 MCG/ACT 16 GM NASAL SPRAY NASAL SCH ×2 (08:45→21:37)
[2017-11-27] MEDS: METOPROLOL TARTRATE 50 MG TAB PO SCH ×2 (08:45→21:36)
[2017-11-27] MEDS: SODIUM CHLORIDE 0.9% FLUSH 10 ML FLUSH IV FLUSH SCH ×2 (08:46→21:00)
[2017-11-27] MEDS: DOCUSATE SODIUM 50 MG/SENNA 8.6 MG TAB PO SCH ×2 (08:46→21:36)
--- NOTE | 2017-11-27 08:56 | HHI.PR ---
Subjective Remarks in no acute distress. still with some swelling and erythema of the face. afebrile and denies pain. d/w the RN at the bedside. Objective Vitals Vital Signs Date Time Temp Pulse Resp B/P (MAP) Pulse Ox O2 Delivery O2 Flow Rate FiO2 11/27/17 07:23 98.2 60 18 107/58 (74) 98 11/27/17 03:19 97.9 62 16 108/57 (74) 98 11/27/17 00:08 97.8 64 18 102/56 (71) 98 11/26/17 20:00 98.0 73 16 99/51 (67) 97 11/26/17 18:19 98.0 69 18 116/59 (78) 97 11/26/17 10:05 12 100 Room Air 11/26/17 10:05 67 15 124/71 (88) 100 Room Air I/O 11/26/17 11/26/17 11/26/17 11/27/17 11/27/17 11/27/17 07:00 15:00 23:00 07:00 15:00 23:00 Intake Total 350 ml 480 ml Balance 350 ml 480 ml Intake Oral 480 ml IV Total 350 ml # Voids 1 3 # Bowel Movements 1 Result Diagram: 11/27/17 0603 11/27/17 0603 Imaging Last Impressions Maxillofacial CT 11/26/17 0000 Signed Impressions: Service Date/Time: Sunday, November 26, 2017 10:40 - CONCLUSION: 1. Mild soft tissue swelling over the left lateral facial bones and orbit with no evidence of abscess. 2. No underlying bony abnormality. Federico Zuniga MD Objective Remarks GENERAL: This is a well-nourished, well-developed patient, in no apparent distress. CARDIOVASCULAR: Regular rate and regular rhythm without murmurs, gallops, or rubs. RESPIRATORY: Clear to auscultation. Breath sounds equal bilaterally. No wheezes , rales, or rhonchi. GASTROINTESTINAL: Abdomen soft, non-tender, nondistended. Normal, active bowel sounds MUSCULOSKELETAL: Extremities without clubbing, cyanosis, or edema. NEURO: Alert & Oriented x4 to person, place, time, situation. Moves all ext x4 skin; erythema/ swelling of the face. Medications and IVs Inpatient Medications Acetaminophen (Tylenol) 500 mg Q4H PRN PO pain 1-3; Start 11/26/17 at 16:00 Acetaminophen/ Hydrocodone Bitart ([place] 5-325 Mg) 1 tab Q4H PRN PO pain >4 Last administered on 11/26/17at 16:48; Start 11/26/17 at 16:00 Ampicillin Sodium/ Sulbactam Sodium 3 gm/Sodium Chloride 100 ml @ 200 mls/hr Q6H IV Last administered on 11/27/17at 04:14; Start 11/26/17 at 17:00 Aspirin (Aspirin Chew) 81 mg DAILY CHEW Last administered on 11/27/17at 08:44; Start 11/27/17 at 09:00 Atorvastatin Calcium (Lipitor) 80 mg HS PO Last administered on 11/26/17at 21:19 ; Start 11/26/17 at 21:00 Bisacodyl (Dulcolax Supp) 10 mg DAILY PRN RECTAL SEVERE CONSITIPATION; Start at 12:00 Cetirizine HCl (ZyrTEC) 10 mg DAILY PO Last administered on 11/27/17at 08:44; Start 11/27/17 at 09:00 Cholecalciferol (Vitamin D3) 2,000 units DAILY PO Last administered on at 08:44; Start 11/27/17 at 09:00 Fluticasone Propionate (Flonase Mitchel Spr) 1 spray BID NASAL Last administered on 11/27/17at 08:45; Start 11/26/17 at 21:00 Haloperidol Decanoate (Haldol Decanoate Inj) 100 mg Q28D IM Last administered on 11/26/17at 16:56; Start 11/26/17 at 16:00 Lactulose (Lactulose Liq) 30 ml DAILY PRN PO SEVERE CONSITIPATION; Start at 12:00 Magnesium Hydroxide (Milk Of Magnesia Liq) 30 ml Q12H PRN PO Mild constipation ; Start 11/26/17 at 12:00 Metoprolol Tartrate (Lopressor) 50 mg BID PO Last administered on 11/27/17at 08: 45; Start 11/26/17 at 21:00 Miscellaneous Information SPECIFIC LAB TO BE DRAWN:VANCOMYCIN TROUGH DATE TO... ONCE ONCE .XX ; Start 11/28/17 at 05:45; Stop 11/28/17 at 05:46 Naloxone HCl (Narcan Inj) 0.4 mg UNSCH PRN IV PUSH SEE LABEL COMMENTS; Start at 12:00 Ondansetron HCl (Zofran Inj) 4 mg Q6H PRN IVP NAUSEA OR VOMITING; Start at 12:00 Pantoprazole Sodium (Protonix) 20 mg DAILY PRN PO REFLUX; Start 11/26/17 at 16: 00 Pharmacy Profile Note 0 ml @ 0 mls/hr UNSCH OTHER ; Start 11/26/17 at 12:00 Piperacillin Sod/ Tazobactam Sod 100 ml @ 200 mls/hr ONCE STAT IV Last administered on 11/26/17at 10:04; Start 11/26/17 at 09:15; Stop 11/26/17 at 09:44; Status DC Senna/Docusate Sodium (Suellen-Colace) 1 tab BID PO Last administered on at 08:46; Start 11/26/17 at 21:00 Sennosides (Senokot) 17.2 mg Q12H PRN PO Moderate constipation; Start 11/26/17 at 12:00 Sodium Chloride (NS Flush) 2 ml BID IV FLUSH Last administered on 11/27/17at 08: 46; Start 11/26/17 at 21:00 Sodium Chloride ([place] Mitchel Barnhart) 2 spray Q4H PRN EACH NARE NASAL CONGESTION; Start 11/26/17 at 15:30 Vancomycin HCl 1000 mg/Sodium Chloride 250 ml @ 250 mls/hr ONCE STAT IV Last administered on 11/26/17at 10:04; Start 11/26/17 at 09:15; Stop 11/26/17 at 10:14; Status DC Vancomycin HCl 1500 mg/Sodium Chloride 515 ml @ 250 mls/hr Q12H IV Last administered on 11/27/17at 05:03; Start 11/26/17 at 18:00 Vancomycin/Sodium Chloride 200 ml @ 200 mls/hr Q12H IV ; Start 11/26/17 at 22:00 ; Stop 11/26/17 at 22:00; Status DC A/P Assessment and Plan Facial cellulitis- improving slowly. -Patient does not have leukocytosis or a fever. -Maxillofacial CT scan showed mild edema in the left lateral facial bone and orbital without abscess. -continue Unasyn and vancomycin. Will have pharmacy dose vancomycin. -follow the blood cultures. -Continue to monitor clinically. Sinusitis -See treatment as above. Will add a nasal saline spray and Flonase. Coronary artery disease status post stent placement/hyperlipidemia/GERD/ schizophrenia -Resume home medication. DVT prophylaxis -Encourage ambulation/SCDs Discharge Planning dc home within the next one-tow days if stable and continues to improve clinically. Chloe Le MD Nov 27, 2017 08:56
[2017-11-27 11:45] VITALS: BP 97/61; PULSE 57; RESP 18; TEMP 98.5; O2SAT 98
[2017-11-27 15:33] VITALS: BP 110/59; PULSE 69; RESP 18; TEMP 98.9; O2SAT 98
[2017-11-27 20:55] VITALS: BP 107/55; PULSE 67; RESP 16; TEMP 98.6; O2SAT 99
[2017-11-27] MEDS: ATORVASTATIN 80 MG TAB PO SCH (21:36)
[2017-11-27] MEDS: ACETAMINOPHEN/HYDROcodone 325 MG/5 MG TAB PO PRN (21:41)
[2017-11-28 00:08] VITALS: BP 114/57; PULSE 59; RESP 16; TEMP 97.5; O2SAT 97
[2017-11-28 04:25] VITALS: BP 118/54; PULSE 59; RESP 15; TEMP 98.4; O2SAT 98
[2017-11-28] MEDS: AMPICILLIN-SULBACTAM INJ 3 GM in SODIUM CHLORIDE 0.9% INJ 100 ML IV SCH ×4 (05:20→22:07)
[2017-11-28] MEDS ORDERED: PHARMACY ORDERED LAB ONE (05:45)
[2017-11-28] MEDS: VANCOMYCIN INJ 1,500 MG in SODIUM CHLORID 0.9% 500 ML INJ 500 ML IV SCH (05:56)
[2017-11-28 07:43] VITALS: BP 122/73; PULSE 67; RESP 18; TEMP 97.9; O2SAT 100
[2017-11-28] MEDS: ASPIRIN 81 MG CHEW TAB CHEW SCH (08:16)
[2017-11-28] MEDS: SODIUM CHLORIDE 0.9% FLUSH 10 ML FLUSH IV FLUSH SCH ×2 (08:17→21:00)
[2017-11-28] MEDS: FLUTICASONE PROPIONATE 50 MCG/ACT 16 GM NASAL SPRAY NASAL SCH ×2 (08:17→22:08)
[2017-11-28] MEDS: CHOLECALCIFEROL (VIT D3) 1000 UNIT TAB PO SCH (08:17)
[2017-11-28] MEDS: CETIRIZINE HCL 10 MG TAB PO SCH (08:17)
[2017-11-28] MEDS: METOPROLOL TARTRATE 50 MG TAB PO SCH ×2 (08:18→22:08)
[2017-11-28] MEDS: DOCUSATE SODIUM 50 MG/SENNA 8.6 MG TAB PO SCH ×2 (08:18→21:00)
--- NOTE | 2017-11-28 10:19 | HHI.PR ---
Subjective Remarks in no acute distress. the erythema and swelling of the face improving-but slowly. afebrile. Objective Vitals Vital Signs Date Time Temp Pulse Resp B/P (MAP) Pulse Ox O2 Delivery O2 Flow Rate FiO2 11/28/17 07:43 97.9 67 18 122/73 (89) 100 11/28/17 04:25 98.4 59 15 118/54 (75) 98 11/28/17 00:08 97.5 59 16 114/57 (76) 97 11/27/17 20:55 98.6 67 16 107/55 (72) 99 11/27/17 15:33 98.9 69 18 110/59 (76) 98 11/27/17 11:45 98.5 57 18 97/61 (73) 98 I/O 11/27/17 11/27/17 11/27/17 11/28/17 11/28/17 11/28/17 07:00 15:00 23:00 07:00 15:00 23:00 Intake Total 100 ml Output Total 200 ml Balance 100 ml -200 ml IV Total 100 ml Output Urine Total 200 ml # Voids 3 5 # Bowel Movements 1 4 Result Diagram: 11/27/17 0603 11/27/17 0603 Imaging Last Impressions Maxillofacial CT 11/26/17 0000 Signed Impressions: Service Date/Time: Sunday, November 26, 2017 10:40 - CONCLUSION: 1. Mild soft tissue swelling over the left lateral facial bones and orbit with no evidence of abscess. 2. No underlying bony abnormality. Federico Zuniga MD Objective Remarks GENERAL: This is a well-nourished, well-developed patient, in no apparent distress. CARDIOVASCULAR: Regular rate and regular rhythm without murmurs, gallops, or rubs. RESPIRATORY: Clear to auscultation. Breath sounds equal bilaterally. No wheezes , rales, or rhonchi. GASTROINTESTINAL: Abdomen soft, non-tender, nondistended. Normal, active bowel sounds MUSCULOSKELETAL: Extremities without clubbing, cyanosis, or edema. NEURO: Alert & Oriented x4 to person, place, time, situation. Moves all ext x4 skin; erythema/ swelling of the face- slowly improving. Medications and IVs Inpatient Medications Acetaminophen (Tylenol) 500 mg Q4H PRN PO pain 1-3; Start 11/26/17 at 16:00 Acetaminophen/ Hydrocodone Bitart ([place] 5-325 Mg) 1 tab Q4H PRN PO pain >4 Last administered on 11/27/17at 21:41; Start 11/26/17 at 16:00 Ampicillin Sodium/ Sulbactam Sodium 3 gm/Sodium Chloride 100 ml @ 200 mls/hr Q6H IV Last administered on 11/28/17at 05:20; Start 11/26/17 at 17:00 Aspirin (Aspirin Chew) 81 mg DAILY CHEW Last administered on 11/28/17at 08:16; Start 11/27/17 at 09:00 Atorvastatin Calcium (Lipitor) 80 mg HS PO Last administered on 11/27/17at 21:36 ; Start 11/26/17 at 21:00 Bisacodyl (Dulcolax Supp) 10 mg DAILY PRN RECTAL SEVERE CONSITIPATION; Start at 12:00 Cetirizine HCl (ZyrTEC) 10 mg DAILY PO Last administered on 11/28/17at 08:17; Start 11/27/17 at 09:00 Cholecalciferol (Vitamin D3) 2,000 units DAILY PO Last administered on at 08:17; Start 11/27/17 at 09:00 Fluticasone Propionate (Flonase Mitchel Spr) 1 spray BID NASAL Last administered on 11/28/17at 08:17; Start 11/26/17 at 21:00 Haloperidol Decanoate (Haldol Decanoate Inj) 100 mg Q28D IM Last administered on 11/26/17at 16:56; Start 11/26/17 at 16:00 Lactulose (Lactulose Liq) 30 ml DAILY PRN PO SEVERE CONSITIPATION; Start at 12:00 Magnesium Hydroxide (Milk Of Magnesia Liq) 30 ml Q12H PRN PO Mild constipation ; Start 11/26/17 at 12:00 Metoprolol Tartrate (Lopressor) 50 mg BID PO Last administered on 11/28/17at 08: 18; Start 11/26/17 at 21:00 Miscellaneous Information SPECIFIC LAB TO BE DRAWN:VANCOMYCIN TROUGH DATE TO... ONCE ONCE .XX Last administered on 11/28/17at 05:20; Start 11/28/17 at 05:45; Stop 11/28/17 at 05:46; Status DC Naloxone HCl (Narcan Inj) 0.4 mg UNSCH PRN IV PUSH SEE LABEL COMMENTS; Start at 12:00 Ondansetron HCl (Zofran Inj) 4 mg Q6H PRN IVP NAUSEA OR VOMITING; Start at 12:00 Pantoprazole Sodium (Protonix) 20 mg DAILY PRN PO REFLUX; Start 11/26/17 at 16: 00 Pharmacy Profile Note 0 ml @ 0 mls/hr UNSCH OTHER ; Start 11/26/17 at 12:00 Piperacillin Sod/ Tazobactam Sod 100 ml @ 200 mls/hr ONCE STAT IV Last administered on 11/26/17at 10:04; Start 11/26/17 at 09:15; Stop 11/26/17 at 09:44; Status DC Senna/Docusate Sodium (Suellen-Colace) 1 tab BID PO Last administered on at 21:36; Start 11/26/17 at 21:00 Sennosides (Senokot) 17.2 mg Q12H PRN PO Moderate constipation; Start 11/26/17 at 12:00 Sodium Chloride (NS Flush) 2 ml BID IV FLUSH Last administered on 11/28/17at 08: 17; Start 11/26/17 at 21:00 Sodium Chloride ([place] Mitchel [place]) 2 spray Q4H PRN EACH NARE NASAL CONGESTION; Start 11/26/17 at 15:30 Vancomycin HCl 1000 mg/Sodium Chloride 250 ml @ 250 mls/hr ONCE STAT IV Last administered on 11/26/17at 10:04; Start 11/26/17 at 09:15; Stop 11/26/17 at 10:14; Status DC Vancomycin HCl 1500 mg/Sodium Chloride 515 ml @ 250 mls/hr Q12H IV Last administered on 11/28/17at 05:56; Start 11/26/17 at 18:00 Vancomycin/Sodium Chloride 200 ml @ 200 mls/hr Q12H IV ; Start 11/26/17 at 22:00 ; Stop 11/26/17 at 22:00; Status DC A/P Assessment and Plan Facial cellulitis- improving slowly. -Patient does not have leukocytosis or a fever. -Maxillofacial CT scan showed mild edema in the left lateral facial bone and orbital without abscess. -continue Unasyn and vancomycin. -blood cultures negative so far. -Continue to monitor clinically. Sinusitis -See treatment as above. Coronary artery disease status post stent placement/hyperlipidemia/GERD/ schizophrenia -Resume home medication. DVT prophylaxis -Encourage ambulation/SCDs Discharge Planning facial cellulitis is improving slowly. will possibly dc home tomorrow if stable. Chloe Le MD Nov 28, 2017 10:19
[2017-11-28 12:05] VITALS: BP 117/72; PULSE 64; RESP 21; TEMP 98; O2SAT 99
[2017-11-28 15:57] VITALS: BP 122/62; PULSE 60; RESP 21; TEMP 98.2; O2SAT 99
[2017-11-28] MEDS: VANCOMYCIN INJ 1,250 MG in SODIUM CHLOR 0.9% 250 ML INJ 250 ML IV SCH (18:53)
[2017-11-28 19:40] VITALS: BP 127/62; PULSE 61; RESP 18; TEMP 97.8; O2SAT 99
[2017-11-28] MEDS: ATORVASTATIN 80 MG TAB PO SCH (22:07)
[2017-11-29 00:10] VITALS: BP 109/59; PULSE 62; RESP 16; TEMP 98.2; O2SAT 98
[2017-11-29 04:11] VITALS: BP 130/62; PULSE 55; RESP 16; TEMP 98.1; O2SAT 99
[2017-11-29] MEDS: AMPICILLIN-SULBACTAM INJ 3 GM in SODIUM CHLORIDE 0.9% INJ 100 ML IV SCH (04:36)
[2017-11-29] MEDS: ACETAMINOPHEN/HYDROcodone 325 MG/5 MG TAB PO PRN (04:37)
[2017-11-29] MEDS: VANCOMYCIN INJ 1,250 MG in SODIUM CHLOR 0.9% 250 ML INJ 250 ML IV SCH (05:14)
[2017-11-29 07:28] VITALS: BP 117/78; PULSE 53; RESP 16; TEMP 97.4; O2SAT 98
[2017-11-29] MEDS ORDERED: CLIN300C5 PO (08:47)
--- NOTE | 2017-11-29 08:47 | HHI.PR ---
Subjective Remarks in no distress. swelling and erythema of the face now has much improved. afebrile. wants to go home today. Objective Vitals Vital Signs Date Time Temp Pulse Resp B/P (MAP) Pulse Ox O2 Delivery O2 Flow Rate FiO2 11/29/17 07:28 97.4 53 16 117/78 (91) 98 11/29/17 04:11 98.1 55 16 130/62 (84) 99 11/29/17 00:10 98.2 62 16 109/59 (76) 98 11/28/17 19:40 97.8 61 18 127/62 (83) 99 11/28/17 15:57 98.2 60 21 122/62 (82) 99 11/28/17 12:05 98.0 64 21 117/72 (87) 99 I/O 11/28/17 11/28/17 11/28/17 11/29/17 11/29/17 11/29/17 07:00 15:00 23:00 07:00 15:00 23:00 Output Total 200 ml 4 ml 300 ml Balance -200 ml -4 ml -300 ml Output Urine Total 200 ml 4 ml 300 ml Result Diagram: 11/27/17 0603 11/27/17 0603 Imaging Last Impressions Maxillofacial CT 11/26/17 0000 Signed Impressions: Service Date/Time: Sunday, November 26, 2017 10:40 - CONCLUSION: 1. Mild soft tissue swelling over the left lateral facial bones and orbit with no evidence of abscess. 2. No underlying bony abnormality. Federico Zuniga MD Objective Remarks GENERAL: This is a well-nourished, well-developed patient, in no apparent distress. CARDIOVASCULAR: Regular rate and regular rhythm without murmurs, gallops, or rubs. RESPIRATORY: Clear to auscultation. Breath sounds equal bilaterally. No wheezes , rales, or rhonchi. GASTROINTESTINAL: Abdomen soft, non-tender, nondistended. Normal, active bowel sounds MUSCULOSKELETAL: Extremities without clubbing, cyanosis, or edema. NEURO: Alert & Oriented x4 to person, place, time, situation. Moves all ext x4 skin; erythema/ swelling of the face- slowly improving. Procedures none Medications and IVs Inpatient Medications Acetaminophen (Tylenol) 500 mg Q4H PRN PO pain 1-3; Start 11/26/17 at 16:00 Acetaminophen/ Hydrocodone Bitart ([place] 5-325 Mg) 1 tab Q4H PRN PO pain >4 Last administered on 11/29/17at 04:37; Start 11/26/17 at 16:00 Ampicillin Sodium/ Sulbactam Sodium 3 gm/Sodium Chloride 100 ml @ 200 mls/hr Q6H IV Last administered on 11/29/17at 04:36; Start 11/26/17 at 17:00 Aspirin (Aspirin Chew) 81 mg DAILY CHEW Last administered on 11/28/17at 08:16; Start 11/27/17 at 09:00 Atorvastatin Calcium (Lipitor) 80 mg HS PO Last administered on 11/28/17at 22:07 ; Start 11/26/17 at 21:00 Bisacodyl (Dulcolax Supp) 10 mg DAILY PRN RECTAL SEVERE CONSITIPATION; Start at 12:00 Cetirizine HCl (ZyrTEC) 10 mg DAILY PO Last administered on 11/28/17at 08:17; Start 11/27/17 at 09:00 Cholecalciferol (Vitamin D3) 2,000 units DAILY PO Last administered on at 08:17; Start 11/27/17 at 09:00 Fluticasone Propionate (Flonase [place] Spr) 1 spray BID NASAL Last administered on 11/28/17at 22:08; Start 11/26/17 at 21:00 Haloperidol Decanoate (Haldol Decanoate Inj) 100 mg Q28D IM Last administered on 11/26/17at 16:56; Start 11/26/17 at 16:00 Lactulose (Lactulose Liq) 30 ml DAILY PRN PO SEVERE CONSITIPATION; Start at 12:00 Magnesium Hydroxide (Milk Of Magnesia Liq) 30 ml Q12H PRN PO Mild constipation ; Start 11/26/17 at 12:00 Metoprolol Tartrate (Lopressor) 50 mg BID PO Last administered on 11/28/17at 22: 08; Start 11/26/17 at 21:00 Miscellaneous Information SPECIFIC LAB TO BE DRAWN:VANCOMY... ONCE ONCE .XX ; Start 11/30/17 at 05:45; Stop 11/30/17 at 05:46 Naloxone HCl (Narcan Inj) 0.4 mg UNSCH PRN IV PUSH SEE LABEL COMMENTS; Start at 12:00 Ondansetron HCl (Zofran Inj) 4 mg Q6H PRN IVP NAUSEA OR VOMITING; Start at 12:00 Pantoprazole Sodium (Protonix) 20 mg DAILY PRN PO REFLUX; Start 11/26/17 at 16: 00 Pharmacy Profile Note 0 ml @ 0 mls/hr UNSCH OTHER ; Start 11/26/17 at 12:00 Piperacillin Sod/ Tazobactam Sod 100 ml @ 200 mls/hr ONCE STAT IV Last administered on 11/26/17at 10:04; Start 11/26/17 at 09:15; Stop 11/26/17 at 09:44; Status DC Senna/Docusate Sodium ([place]-Colace) 1 tab BID PO Last administered on at 21:36; Start 11/26/17 at 21:00 Sennosides (Senokot) 17.2 mg Q12H PRN PO Moderate constipation; Start 11/26/17 at 12:00 Sodium Chloride (NS Flush) 2 ml BID IV FLUSH Last administered on 11/28/17at 08: 17; Start 11/26/17 at 21:00 Sodium Chloride ([place]) 2 spray Q4H PRN EACH NARE NASAL CONGESTION; Start 11/26/17 at 15:30 Vancomycin HCl 1000 mg/Sodium Chloride 250 ml @ 250 mls/hr ONCE STAT IV Last administered on 11/26/17at 10:04; Start 11/26/17 at 09:15; Stop 11/26/17 at 10:14; Status DC Vancomycin HCl 1250 mg/Sodium Chloride 262.5 ml @ 250 mls/hr Q12H IV Last administered on 11/29/17at 05:14; Start 11/28/17 at 18:00 Vancomycin HCl 1500 mg/Sodium Chloride 515 ml @ 250 mls/hr Q12H IV Last administered on 11/28/17at 05:56; Start 11/26/17 at 18:00; Stop 11/28/17 at 10:38 ; Status DC Vancomycin/Sodium Chloride 200 ml @ 200 mls/hr Q12H IV ; Start 11/26/17 at 22:00 ; Stop 11/26/17 at 22:00; Status DC A/P Assessment and Plan Facial cellulitis- has much improved. -Patient does not have leukocytosis or a fever. -Maxillofacial CT scan showed mild edema in the left lateral facial bone and orbital without abscess. -switch to po antibiotics. -blood cultures negative so far. -Continue to monitor clinically. Sinusitis -See treatment as above. Coronary artery disease status post stent placement/hyperlipidemia/GERD/ schizophrenia -Resume home medication. DVT prophylaxis -Encourage ambulation/SCDs Discharge Planning dc home today. see med list. f/u; pcp. Chloe Le MD Nov 29, 2017 08:47
--- NOTE | 2017-11-29 08:48 | HHI.DS ---
Discharge Summary Admission Date Nov 26, 2017 at 11:28 Discharge Date: Nov 29, 2017 Admitting Diagnosis facial celluliltis (1) Facial cellulitis ICD Code: L03.211 - Cellulitis of face Diagnosis: Principal Status: Acute Procedures none Brief History - From Admission This is a 67-year-old male past medical history coronary artery disease status post stent placement 10 years ago, hyperlipidemia, GERD, history of schizophrenia, and recurrent facial cellulitis who presented with recurrent facial cellulitis. Patient was seen in the ED on July 2017 with facial cellulitis and was sent home with Augmentin with resolution of his cellulitis. He stated Saturday night facial cellulitis returned and worsened. He went to the [facility] yesterday and they told him to go to the emergency department. Patient does admit having allergies and runny nose. He stated that he uses a nasal spray but was not able to tell me what kind and it is not listed in his medication list. He denied any postnasal dripping, earache, pain or sore throat. Denies any fevers or chills. He stated that he's been treated 3-4 times in his lifetime for this issue. Patient denied any eye pain or visual changes. He was not treated on any oral medication for this episode. All other review of system reviewed and negative CBC/BMP: 11/27/17 0603 11/27/17 0603 Significant Findings Laboratory Tests Test 11/26/17 09:25 11/26/17 10:02 11/27/17 06:03 11/28/17 05:10 Monocytes (%) (Auto) 8.1 % (0.0-8.0) Eosinophils (%) (Auto) 5.2 % (0.0-4.0) Eosinophils # (Auto) 0.5 TH/MM3 (0-0.4) Random Glucose 115 MG/DL (74-106) 130 MG/DL (74-106) Albumin 3.2 GM/DL (3.4-5.0) Estimat Glomerular Filtration Rate 82 ML/MIN (>89) 85 ML/MIN (>89) Urine Mucus FEW /lpf (OCC) Red Blood Count 4.23 MIL/MM3 (4.50-5.90) Hematocrit 37.1 % (39.0-51.0) Calcium Level 8.1 MG/DL (8.5-10.1) Vancomycin Level Trough 17.8 MCG/ML (5.0-10.0) Imaging Last Impressions Maxillofacial CT 11/26/17 0000 Signed Impressions: Service Date/Time: Sunday, November 26, 2017 10:40 - CONCLUSION: 1. Mild soft tissue swelling over the left lateral facial bones and orbit with no evidence of abscess. 2. No underlying bony abnormality. Federico Zuniga MD PE at Discharge GENERAL: This is a well-nourished, well-developed patient, in no apparent distress. CARDIOVASCULAR: Regular rate and regular rhythm without murmurs, gallops, or rubs. RESPIRATORY: Clear to auscultation. Breath sounds equal bilaterally. No wheezes , rales, or rhonchi. GASTROINTESTINAL: Abdomen soft, non-tender, nondistended. Normal, active bowel sounds MUSCULOSKELETAL: Extremities without clubbing, cyanosis, or edema. NEURO: Alert & Oriented x4 to person, place, time, situation. Moves all ext x4 skin; erythema/ swelling of the face- slowly improving. Hospital Course patient was admitted with facial cellulitis. he was started on IV antibiotics. the cellulitis improved on IV antibiotics. he will be discharged home with po antibiotics and f/u with his PCP. Pt Condition on Discharge: Good Discharge Disposition: Discharge Home Discharge Time: <= 30 minutes Chloe Le MD Nov 29, 2017 08:48
--- NOTE | 2017-11-29 08:49 | HHI.DCPOC ---
Discharge Care Plan Diagnosis: (1) Facial cellulitis Goals to Promote Your Health * To prevent worsening of your condition and complications * To maintain your health at the optimal level Directions to Meet Your Goals Take your medications as prescribed Follow your dietary instruction Follow activity as directed Keep your appointments as scheduled Take your immunizations and boosters as scheduled If your symptoms worsen call your PCP, if no PCP go to Urgent Care Center or Emergency Room Smoking is Dangerous to Your Health. Avoid second hand smoke Call the 24-hour hour crisis hotline for domestic abuse at Melany Higginbotham PA-C Nov 29, 2017 8:49 am
[2017-11-29] MEDS: CHOLECALCIFEROL (VIT D3) 1000 UNIT TAB PO SCH (09:07)
[2017-11-29] MEDS: METOPROLOL TARTRATE 50 MG TAB PO SCH (09:07)
[2017-11-29] MEDS: CETIRIZINE HCL 10 MG TAB PO SCH (09:07)
[2017-11-29] MEDS: ASPIRIN 81 MG CHEW TAB CHEW SCH (09:08)
[2017-11-29] MEDS: FLUTICASONE PROPIONATE 50 MCG/ACT 16 GM NASAL SPRAY NASAL SCH (09:08)
[2017-11-29] MEDS: SODIUM CHLORIDE 0.9% FLUSH 10 ML FLUSH IV FLUSH SCH (09:10)
[2017-11-29] MEDS: DOCUSATE SODIUM 50 MG/SENNA 8.6 MG TAB PO SCH (09:10)
[2017-11-30] MEDS ORDERED: PHARMACY ORDERED LAB ONE (05:45)
== END 2017-11-29 10:22 | disposition home or self-care (01) ==
LOC: NEPC 08:30 → NEDA 11:28 → NEPFCDU 16:20
PROVIDERS: ADMIT Internal Medicine; ATTEND Internal Medicine
DX: L03.211 Cellulitis of face (principal); I25.10 Atherosclerotic heart disease of native coronary artery without angina pectoris; E78.5 Hyperlipidemia, unspecified; K21.9 Gastro-esophageal reflux disease without esophagitis; F20.9 Schizophrenia, unspecified; Z95.5 Presence of coronary angioplasty implant and graft; Z79.82 Long term (current) use of aspirin
CPT/HCPCS: 70487; 80048; 80053; 80202; 81001; 83605; 83735; 85025; 85027; 85610; 85730; 87040; 96365; 96366; 96367; 96368; 96372; 96375; 99285; G0378; J0295; J1631; J2543; J3370; J7040; J7050; Q9967